=== PATIENT | male | born 1990 | race Caucasian/White ===

== ENCOUNTER 2023-12-02 12:26 | Emergency (ER) | payer BC, OTHER ==
[2023-12-02] MEDS ORDERED: XYLOCAINE 1% HCL 20 ML MDV ONE (12:35)
[2023-12-02 12:47] VITALS: TEMP 97.2
[2023-12-02] MEDS ORDERED: BACIGUENT PACKET ONE (12:47)
[2023-12-02] MEDS: XYLOCAINE 1% HCL 20 ML MDV IJ ONE (12:47)
[2023-12-02] MEDS: BACIGUENT PACKET TP ONE (12:48)
[2023-12-02] MEDS ORDERED: Adacel Vial IM ONE (12:59)
[2023-12-02] MEDS: Adacel Vial IM ONE (13:01)
--- NOTE | 2023-12-02 13:06 | ERPHSYRPT ---
- History of Present Illness Time Seen by Provider: 12/02/23 13:06 Source: patient Exam Limitations: no limitations Patient Subjective Stated Complaint: Injured right hand at work Triage Nursing Assessment: Patient brought to ER by ruslan hardin, states pain 2/10, 3cm laceration below lateral right thumb, bleeding controlled, pulse is normal, skin n/w/d, doesn't appear to be in any distress. Physician History: 33-year-old male presents to emergency department for evaluation of a laceration to the right hand at the level of the [facility] at the thumb. Injury occurred just prior to arrival tetanus is not up-to-date. Patient cut his hand while at work. No bony pain. No blunt trauma. Pain described as an ache that is localized. No radiation. No other injuries reported. Patient voices no other complaints or concerns at this time. Portions of this note were created with voice recognition technology. There may be grammatical, spelling, punctuation or sound alike errors Timing/Duration: today Severity: moderate Modifying Factors: Improves With: nothing Associated Symptoms: denies symptoms Allergies/Adverse Reactions: No Known Drug Allergies Allergy (Verified 12/02/23 12:46) Hx Tetanus, Diphtheria Vaccination/Date Given: No Travel Risk - International Travel Have you traveled outside of the country in past 3 weeks: No - Emerging Infectious Disease Are you exhibiting symptoms associated with any current EIDs: No - Review of Systems Constitutional: No Symptoms, No Fever, No Chills Eyes: No Symptoms Ears, Nose, & Throat: No Symptoms Respiratory: No Symptoms, No Cough, No Dyspnea Cardiac: No Symptoms, No Chest Pain, No Edema, No Syncope Abdominal/Gastrointestinal: No Symptoms, No Abdominal Pain, No Nausea, No Vomiting, No Diarrhea Genitourinary Symptoms: No Symptoms, No Dysuria Musculoskeletal: No Symptoms, No Back Pain, No Neck Pain Skin: No Symptoms, No Rash Neurological: No Symptoms, No Dizziness, No Focal Weakness, No Sensory Changes Psychological: No Symptoms Endocrine: No Symptoms Hematologic/Lymphatic: No Symptoms Immunological/Allergic: No Symptoms All Other Systems: Reviewed and Negative - Past Medical History Pertinent Past Medical History: No - Past Surgical History Past Surgical History: No Other Surgical History: tubes - Social History Smoking Status: Never smoker Exposure to second hand smoke: No Drug Use: none - Social Determinants of Health Will the patient participate in the screening: Yes Do you worry about a steady place to live?: No Do you have any problems with any of the following?: No known problems In the past 12 months,have you had to go without utilities?: No Transportation Issues: No Has anyone in your support network made you feel unsafe?: No Have you or anyone in your house had to go without enough: No - Nursing Vital Signs Nursing Vital Signs: Initial Vital Signs Temperature 97.2 F 12/02/23 12:30 Pulse Rate 75 12/02/23 12:30 Blood Pressure 97/70 12/02/23 12:30 O2 Sat by Pulse Oximetry 97 12/02/23 12:30 Pain Scale Pain Intensity 2 - Physical Exam General Appearance: no apparent distress, alert Eye Exam: PERRL/EOMI, eyes nml inspection Ears, Nose, Throat Exam: normal ENT inspection, moist mucous membranes Neck Exam: normal inspection, non-tender, supple, full range of motion Respiratory Exam: normal breath sounds, lungs clear, airway intact, No respiratory distress Cardiovascular Exam: regular rate/rhythm, normal peripheral pulses Gastrointestinal/Abdomen Exam: No tenderness, No mass Back Exam: normal inspection, normal range of motion, No CVA tenderness, No vertebral tenderness Extremity Exam: normal inspection, normal range of motion, pelvis stable Neurologic Exam: alert, oriented x 3, cooperative, normal mood/affect, sensation nml, No motor deficits Skin Exam: normal color, warm, dry, No rash Lymphatic Exam: No adenopathy SpO2 Interpretation: normal SpO2: 97 O2 Delivery: Room Air Procedures - Laceration/Wound Repair Right Hand Time of Procedure: 13:00 Wound Location: Right Wound Length (cm): 3 Wound's Depth, Shape: superficial Wound Explored: clean Irrigated: Yes Hibiclens Prep: Yes Anesthesia: 1% Lidocaine Volume Anesthetic (ccs): 4 Wound Repaired With: sutures (No debridement indicated) Suture Size/Type: 5-0, ethilon Number of Sutures: 7 Layer Closure?: No Sterile Dressing Applied?: Yes Progress: 12/02/23 13:10 Patient tolerated procedure well. No IntraOp or postprocedural complications. Patient neurovascular intact distally post procedure. - Course Nursing assessment & vital signs reviewed: Yes Ordered Tests: Active Orders 24 hr Category Date Time Status Wound Care STAT Care 12/02/23 12:44 Active Medication Summary Discontinued Medications Generic Name Dose Route Start Last Admin Trade Name Carlos PRN Reason Stop Dose Admin Bacitracin Zinc 0.9 each 12/02/23 12:45 12/02/23 12:48 Bacitracin Packet 1 Each Pckt TP 12/02/23 12:46 0.9 each STAT ONE Administration Bacitracin Zinc Confirm 12/02/23 12:47 Bacitracin Packet 1 Each Pckt Administered 12/02/23 12:48 Dose 1 each .ROUTE .STK-MED ONE Diphtheria/Tetanus/Acell Pertussis 0.5 ml 12/02/23 12:57 12/02/23 13:01 Tdap --Diph,Pertuss(Acell),Tet Vac/Pf 0.5 Ml Vial IM 12/02/23 12:58 0.5 ml .ONCE ONE Administration Diphtheria/Tetanus/Acell Pertussis Confirm 12/02/23 12:59 Tdap --Diph,Pertuss(Acell),Tet Vac/Pf 0.5 Ml Vial Administered 12/02/23 13:00 Dose 0.5 ml IM .STK-MED ONE Lidocaine HCl 10 ml 12/02/23 12:37 12/02/23 12:47 Lidocaine Hcl 1% 20 Ml Mdv 20 Ml Ml IJ 12/02/23 12:38 10 ml STAT ONE Administration Lidocaine HCl Confirm 12/02/23 12:35 Lidocaine Hcl 1% 20 Ml Mdv 20 Ml Ml Administered 12/02/23 12:36 Dose 10 ml .ROUTE .STK-MED ONE - Progress Progress: improved Progress Note: 33-year-old male presents to our ED for evaluation of a hand laceration. Physical exam reveals a 3 cm laceration relatively superficial. No tendinous involvement. The involved extremities neurovascular intact distally compartments are soft cap refill less than 2 seconds. Wound was irrigated and anesthetized using 1% lidocaine. 7 simple interrupted sutures placed. Patient neurovascular intact distally pre and post procedure. Wound was dressed with a sterile dressing. A prescription for Keflex antibiotic forwarded to patient's pharmacy. Patient denied any bony pain. There is no blunt trauma reported. No x-ray ordered or indicated. Patient to follow-up with his primary care doctor within 48 hours for reevaluation. Portions of this note were created with voice recognition technology. There may be grammatical, spelling, punctuation or sound alike errors Complexity of problem addressed is moderate acute complicated. No critical care time. Complexity of data reviewed is none. No specialized test ordered. Diagnosis made based on history and physical exam. Risk of complication and or risk of morbidity/mortality patient management is moderate. A prescription for Keflex forwarded to patient's pharmacy. Vital stable time spent to discharge patient is approximately 10 minutes. Plan of care established for shared decision making. No social determinants of health present impede follow-up. Portions of this note were created with voice recognition technology. There may be grammatical, spelling, punctuation or sound alike errors 12/02/23 13:11 Counseled pt/family regarding: diagnosis, need for follow-up - Departure Departure Disposition: Home Clinical Impression: Hand laceration Condition: Stable Critical Care Time: No Referrals: DOCTOR,NO FAMILY [Primary Care Provider] - Follow up/PCP as directed SETH GREENE MD [ACTIVE STAFF] - Follow up/PCP as directed Additional Instructions: Discharge/Care Plan MAGDALENO SEBASTIAN was seen on 12/02/23 in the Emergency Room. The patient was counseled regarding Diagnosis,Lab results, Imaging studies, need for follow up and when to return to the Emergency Room. Prescriptions given: Discharge Note I have spoken with the patient and/or caregivers. I have explained the patient's condition, diagnosis and treatment plan based on the information available to me at this time. I have answered the patient's and/or caregiver's questions and addressed any concerns. The patient and/or caregivers have as good understanding of the patient's diagnosis, condition and treatment plan as can be expected at this point. The vital signs have been stable. The patient's condition is stable and appropriate for discharge from the emergency department. The patient will pursue further outpatient evaluation with the primary care physician or other designated or consulting physician as outlined in the discharge instructions. The patient and/or caregivers are agreeable to this plan of care and follow-up instructions have been explained in detail. The patient and/or caregivers have received these instruction. The patient/and or caregivers are aware that any significant change in condition or worsening of symptoms should prompt an immediate return to this or the closest emergency department or call 911. Prescriptions: Cephalexin Mh 500 mg [Keflex 500 mg] 500 mg PO TID 7 Days #21 cap
[2023-12-02 13:21] VITALS: BP 106/74; PULSE 76; RESP 16; O2SAT 96
== END 2023-12-02 13:19 | disposition home or self-care (01) ==
LOC: ED 12:26
DX: S61.411A Laceration without foreign body of right hand, initial encounter (principal); W27.8XXA Contact with other nonpowered hand tool, initial encounter; Y92.63 Factory as the place of occurrence of the external cause; Y99.0 Civilian activity done for income or pay; Z23 Encounter for immunization
CPT/HCPCS: 12002; 90471; 90715; 96372; 99283; A9270-GY